=== PATIENT | male | born 1960 | race Caucasian/White ===

== ENCOUNTER → 2017-03-02 | Outpatient (CLI) | payer BC ==
--- NOTE | 2017-03-02 12:36 | KCIC ---
MR of the left midfoot HISTORY: Lateral midfoot pain for about 2 months. FINDINGS: Generalized mild primary osteoarthritis with osteophytes. Slightly more advanced primary osteoporosis at the calcaneal cuboid joint. Areas of degenerative subchondral marrow edema. Lisfranc ligament complex is intact. Tarsometatarsal alignment is preserved. Mild peroneus longus thickening with subtle increased signal compatible with mild tendinosis. Mild fluid signal surrounds the peroneal tendons. Limited visualization of the peroneus brevis tendon at the ankle demonstrates a longitudinal split tear, and tendinosis.. Moderate thickening of the plantar aponeurosis at the calcaneal attachment of the central band, with mildly increased signal and subjacent enthesophyte. Mild adjacent soft tissue edema. Subtalar joints are patent. Mild signal alteration of the tarsal sinus compatible with scarring or synovitis. Mild subchondral edema in T1 signal loss at the medial talar dome, likely due to degenerative etiology or prior old transchondral trauma. No evidence of acute fracture or unstable osteochondral lesion. No significant joint effusion. Mild soft tissue edema around the hindfoot. IMPRESSION: 1. Moderate plantar fasciitis. 2. Peroneus longus tendinosis in the foot. 3. Longitudinal split tear of the peroneus brevis tendon at and just distal to the lateral malleolus. 4. Primary osteoarthritis. 5. Scarring/synovitis in the tarsal sinus, a finding which can be seen with biomechanical stress and could correlate with symptoms of tarsal sinus syndrome. Electronically signed by: John Palacios MD (03/02/2017 12:32 PM)
== END | disposition home or self-care (01) ==
LOC: KCIC MRI 07:46
PROVIDERS: ATTEND Family Medicine
DX: M19.072 Primary osteoarthritis, left ankle and foot (principal)
CPT/HCPCS: 73718

== ENCOUNTER → 2017-06-01 | Outpatient (CLI) | payer BC ==
--- NOTE | 2017-06-01 12:13 | KCIC ---
MRI Lumbar Spine without contrast History: Lumbar radiculopathy, previous surgery, low back pain, bilateral lower extremity pain and numbness and tingling with walking Technique: Multiplanar, multi sequential noncontrast MR imaging was performed of the lumbar spine. Contrast: None Comparison: None available at this time Findings: There is more advanced degenerative disc disease L3-4, moderate to severe degenerative disease disc disease L2-3, L1-2, L4-5. Conus terminates normally at L1. L3-4 endplate edema eccentric to the left is more likely to be reactive/degenerative in etiology. Vertebral body stature is overall preserved. AP alignment is adequate. There is somewhat diffuse narrowing of the lumbar spinal canal and neural foramina on a developmental basis. T11-12: There is shallow protrusion in the right lateral recess, minimal right lateral recess stenosis. There is mild buckling of the ligamentum flavum. There is minimal posterior narrowing of the right neural foramen by facet, left neural foramen adequate. T12-L1: There is mild buckling of the ligamentum flavum flavum and facet hypertrophic change. Spinal canal and neural foramina are adequate. L1-L2: There is broad posterior bulge/protrusion. There is mild buckling of the ligamentum flavum. There is sddf-oz-[id number] narrowing of the far lateral recesses bilaterally. Neural foramina are adequate. L2-L3: There is disc osteophyte complex and superimposed broad posterior protrusion. There is mild buckling of the ligamentum flavum and mild facet hypertrophic change. There is moderate narrowing of the far lateral recesses greater on the left, tkwq-am-wheickqi narrowing of the central canal. There is minimal narrowing of the inferior left neural foramen, right neural foramen not significantly narrowed. L3-L4: There is a broad posterior protrusion. There are 2 adjacent synovial cyst in the left lateral recess more posteriorly, largest 0.6 cm in the other on the order of 0.4 cm. There is severe spinal stenosis with effacement of subarachnoid space, lateral recess stenosis bilaterally greater on the left. There is mild narrowing of the right neural foramen. Protrusion/extrusion extending above the intervertebral disc space in the left neural foramen and left extraforaminal region results in severe narrowing of the left neural foramen with impingement of the exiting left L3 nerve root including in the extraforaminal region. Extrusion is estimated at approximately 0.8 cm CC by 0.9 cm AP by at least 1.6 cm transverse. L4-L5: There is mild facet hypertrophic change and buckling of the ligamentum flavum. There is a shallow posterior bulge/protrusion. There is moderate to severe lateral recess stenosis bilaterally, mild to moderate narrowing of the central canal. There is yfzp-ak-hrgiguss right and mild left neural foramina compromise. L5-S1: Spinal canal is adequate. Neural foramina are overall adequate. Minimal disc osteophyte complex is near the ventral undersurface exiting left L5 nerve root in the proximal extraforaminal region without displacement. Impression: 1. There is severe spinal stenosis at L3-4, lateral recess stenosis greater on the left due to synovial cysts. There is other variable lateral recess stenosis as described such as bilaterally at L4-5 and L2-3 and to lesser degree at L1-2. 2. There is severe narrowing of the left L3-4 neural foramen by protrusion/extrusion with impingement of the exiting left L3 nerve root in the neural foramen and extraforaminal region. There is other lesser degree of neural foramina compromise as described. 3. There is multilevel moderate to severe degenerative disc disease other than sparing L5-S1. There is multilevel mild spondylosis. Electronically signed by: Jairo Brown MD (06/01/2017 12:10 PM) [facility]-KC[facility]
== END | disposition home or self-care (01) ==
LOC: KCIC MRI 10:36
PROVIDERS: ATTEND Nurse Practitioner Family
DX: M48.06 Spinal stenosis, lumbar region (principal); M51.17 Intervertebral disc disorders with radiculopathy, lumbosacral region
CPT/HCPCS: 72148

== ENCOUNTER → 2017-07-30 | Outpatient (CLI) | payer BC ==
[~2017-07-30] MED LIST: AMLO10TA2 PO; ASCO10002 PO; ASPI-482 PO; CHOL10003 PO; CYAN250012 PO; DOCU-109 PO; HYDR-2762 PO; HYDR50TA6 PO; IBUP-1060 PO; MELO15TA23 PO; MULT1TAB52 PO; OMEP40CA5 PO; TRAM50TA PO
[2017-07-30 15:38] LABS: BASO # 0.1 x10^3/uL (0.0-0.2); BASO % 1 % (0-3); EOS % 3 % (0-3); HEMOGLOBIN 15.8 g/dL (13.0-17.5); LYMPH # 2.4 x10^3/uL (1.0-4.8); LYMPH % 22 % (24-48); MEAN CORPUSCULAR HEMOGLOBIN 29 pg (25-35); MEAN CORPUSCULAR HGB CONC 34 g/dL (31-37); MEAN CORPUSCULAR VOLUME 86 fL (79-100); MONO % 11 % (0-9); NEUT % 64 % (31-73); PLATELET COUNT 286 x10^3/uL (140-400); RED BLOOD COUNT 5.46 x10^6/uL (4.30-5.70); RED CELL DISTRIBUTION WIDTH 14.7 % (11.5-14.5); WHITE BLOOD COUNT 10.8 x10^3/uL (4.0-11.0)
[2017-07-30 16:19] LABS: ALBUMIN 3.8 g/dL (3.4-5.0); ALBUMIN/GLOBULIN RATIO 1.1 (1.0-1.7); CALCIUM 9.5 mg/dL (8.5-10.1); CREATININE 0.8 mg/dL (0.7-1.3); POTASSIUM 4.1 mmol/L (3.5-5.1); TOTAL BILIRUBIN 0.5 mg/dL (0.2-1.0); TOTAL PROTEIN 7.4 g/dL (6.4-8.2)
== END | disposition home or self-care (01) ==
LOC: SURGPAT 12:53
PROVIDERS: ATTEND Neurological Surgery
DX: Z01.818 Encounter for other preprocedural examination (principal); M48.061 Spinal stenosis, lumbar region without neurogenic claudication; M71.38 Other bursal cyst, other site
CPT/HCPCS: 36415; 80053; 85025; 87641

== ENCOUNTER 2017-08-08 10:16 | Observation (INO) | payer BC ==
[2017-08-08] VITALS (8 sets, daily range): BP systolic 128–149; BP diastolic 67–81
[~2017-08-08] VITALS: Ht 175.3 cm; Wt 130.2 kg
[~2017-08-08 10:16] MED LIST changes: +BACITRACIN 50,000 UNIT in IV NORMAL SALINE 1000ML BAG 1,000 ML IRR ONE; -DOCU-109 PO; -HYDR-2762 PO; +HYDROmorphone 2 MG/ML VIAL IV PRN; +LIDOCAINE 1% PF 2 ML VIAL. ID PRN; +MORPHINE SULFATE 4 MG/ML DISP.SYRIN. IV PRN; +ONDANSETRON PF 4 MG/2 ML VIAL. IV PRN; +PROCHLORPERAZINE 10 MG/2 ML VIAL. IV PRN; +fentaNYL PF VIAL 100 MCG/2 ML VIAL IV PRN
--- NOTE | 2017-08-08 10:48 | HP ---
ADMIT DATE: Win Bingham dictating for Dr. Deepak Shepherd. TYPE OF REPORT: Preop H and P. DATE OF SURGERY: 08/08/2017. HISTORY OF PRESENT ILLNESS: The patient is a pleasant 57-year-old man who presents with difficulty with bilateral low back pain, especially prominent on the left side along with numb and painful sensation, which can radiate into his legs, especially on the left. He states he feels unsteadiness because of feelings of leg weakness and feelings on occasion that his legs might give out. The problem began a few months ago. It began spontaneously. Currently, he rates his pain as a 5/10, but it can become a 10/10 at its worse. 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 Walking seems to aggravate the problem. Sitting and stretching help him. He takes tramadol and Tylenol. PAST MEDICAL HISTORY: Arthritis, headaches, head/neck injury, hypertension, kidney stones and ulcers. PAST SURGICAL HISTORY: Back surgery in 2012, right knee replacement in 2013 and left knee replacement in 2014. FAMILY HISTORY: Diabetes, heart problems/disease, hypertension and heart attack at an early age. SOCIAL HISTORY: Employed at the [employer] in [place] [employer]. . Exercises daily. Denies substance abuse. Denies tobacco use. ALLERGIES: No known drug allergies. CURRENT MEDICATIONS: Omeprazole, amlodipine, hydrochlorothiazide, meloxicam, furosemide, tramadol, Tylenol, D3 Adult, Jason Aspirin, vitamin C, B12, Actos, potassium and Men's One Daily. REVIEW OF SYSTEMS: A 12-point review of systems was obtained and is noncontributory except for that mentioned above. NEUROSURGERY EXAMINATION: GENERAL APPEARANCE: Alert and pleasant, in no acute distress. HEENT: Normocephalic and atraumatic. SKIN: Warm and dry. MUSCULOSKELETAL: Lumbar paraspinal muscle bulk is normal, restricted range of motion of the lumbar spine, wbtw-wt-sqwawvzw tenderness of lower lumbar spine with palpation, normal range of motion of the lower extremities bilaterally. EXTREMITIES: No clubbing, cyanosis or edema. NEUROLOGICAL: Alert and oriented x 3, normal recent and remote memory, strength 5/5 in bilateral lower extremities, sensory was intact to light touch in the lower extremities bilaterally, reflexes were present and symmetric in bilateral lower extremities, he had a positive straight leg raising on the left with back and left posterior thigh pain relieved by Lasegue's maneuver. Straight leg raising is negative on the right side. Gait was normal. IMAGING: Reviewed. I reviewed a lumbar MRI scan. On that study, there are 2 problems. The first is severe spinal stenosis at L3-L4 related to synovial cyst. Additionally, at this level for lateral foraminal region is a large foraminal disk protrusion which markedly narrows the foramina and compresses the left L3 nerve root. ASSESSMENT: 1. S1 spinal stenosis, lumbar region with neurogenic claudication. 2. Other bursal cyst, unspecified site. 3. Intervertebral disk disorders with radiculopathy, lumbar region. PLAN: The patient has 2 problems. He has a synovial cyst with severe stenosis and the second problem is a far lateral foraminal disk herniation on the left L3-L4. My recommendation is that he undergo surgery to both remove the synovial cyst as well as the foraminal disk herniation. I spoke about the surgery and the risks. I spoke about the technique of the surgery. I spoke about the associated problems with foraminal disk herniations. I outlined the possibility that he may not improve. I spoke about the possibility of chronic back pain related to this kind of surgery. I spoke about the need for future surgery with an instrumented lumbar fusion. I spoke about the risks of this surgery and the expected postoperative course. He understands. At this point, he would like to proceed. We will make the arrangements. DEEPAK SHEPHERD MD DR: CAMERON/valeriy JOB#: [id number] / [id number]
[2017-08-08] MEDS: IV RINGERS,LACTATED 1000ML 1,000 ML IV SCH ×2 (10:50→15:55)
[2017-08-08] MEDS ORDERED: PROPOFOL 50 ML IV ONE ×2 (10:56→13:26)
[2017-08-08] MEDS ORDERED: DEXAMETHASONE SOD PHOS 20 MG/5 ML VIAL. ONE (10:56)
[2017-08-08] MEDS ORDERED: PROPOFOL 20 ML IV ONE (10:56)
[2017-08-08] MEDS ORDERED: ONDANSETRON PF 4 MG/2 ML VIAL. ONE (10:56)
[2017-08-08] MEDS ORDERED: PHENYLEPHRINE 10 MG/ML VIAL. ONE (10:56)
[2017-08-08] MEDS ORDERED: LIDOCAINE 2% PF Vial for OR 5 ML VIAL. ONE (10:56)
[2017-08-08] MEDS ORDERED: ROCURONIUM 50 MG/5 ML VIAL. ONE (10:57)
[2017-08-08] MEDS ORDERED: MIDAZOLAM HCL/PF 2 MG/2 ML VIAL. ONE (10:57)
[2017-08-08] MEDS ORDERED: REMIFENTANIL 2 MG VIAL. IV ONE (10:57)
[2017-08-08] MEDS ORDERED: GELATIN SPONGE SIZE 100. ONE (11:31)
[2017-08-08] MEDS ORDERED: BUPIVAC MPF-EPI 0.5%-1:200000 30 ML VIAL. ONE (11:31)
[2017-08-08] MEDS ORDERED: KETOROLAC 60 MG/2 ML INJ FOR OR. ONE (11:32)
[2017-08-08] MEDS ORDERED: THROMBIN TOPICAL 20,000 UNIT SPRAY.SYRN KIT TP ONE (11:32)
[2017-08-08] MEDS ORDERED: GLYCOPYRROLATE 1 MG/5 ML VIAL. ONE (12:52)
[2017-08-08] MEDS ORDERED: DESFLURANE > 120 MINUTES IH ONE (13:26)
[2017-08-08] MEDS ORDERED: NEOSTIGMINE METHYLSULFATE 5 MG/5 ML SYRINGE. ONE (14:34)
[2017-08-08] MEDS: POTASSIUM CL 20MEQ D5-0.45NACL 1,000 ML IV SCH (14:57)
[2017-08-08] MEDS ORDERED: MAGNESIUM HYDROXIDE 2,400 MG/30 ML ORAL.SUSP. PO PRN (15:00)
[2017-08-08] MEDS ORDERED: ONDANSETRON PF 4 MG/2 ML VIAL. IV PRN (15:00)
[2017-08-08] MEDS ORDERED: diphenhydrAMINE 50 MG/ML VIAL IV PRN (15:00)
[2017-08-08] MEDS ORDERED: CALCIUM CARBONATE 500 MG TAB.CHEW PO PRN (15:00)
[2017-08-08] MEDS ORDERED: 0.9 % SODIUM CHLORIDE 10 ML DISP.SYRIN. IV PRN (15:00)
[2017-08-08] MEDS ORDERED: ZOLPIDEM 5 MG TABLET. PO PRN (15:00)
[2017-08-08] MEDS ORDERED: diphenhydrAMINE HCL 25 MG CAPSULE PO PRN (15:00)
[2017-08-08] MEDS ORDERED: fentaNYL PF VIAL 100 MCG/2 ML VIAL IV PRN ×2 (15:00)
[2017-08-08] MEDS ORDERED: ACETAMINOPHEN 325 MG TABLET. PO PRN (15:00)
[2017-08-08] MEDS ORDERED: HYDROcodone/APAP 7.5/325MG 1 TAB TABLET PO PRN ×2 (15:00)
[2017-08-08] MEDS ORDERED: MAG HYDROX/ALUMINUM HYD/SIMETH 30 ML ORAL.SUSP PO PRN (15:00)
[2017-08-08] MEDS: fentaNYL PF VIAL 100 MCG/2 ML VIAL IV PRN ×2 (15:24→15:47)
[2017-08-08] MEDS: traMADol 50 MG TABLET PO SCH ×2 (16:00→20:34)
[2017-08-08] MEDS: amLODIPine BESYLATE 10 MG TABLET PO SCH (16:00)
[2017-08-08] MEDS: hydroCHLOROthiazide 25 MG TABLET PO SCH (16:00)
[2017-08-08] MEDS: ASPIRIN ENTERIC COATED 81 MG TABLET.DR. PO SCH (16:00)
[2017-08-08] MEDS: PANTOPRAZOLE 40 MG TABLET.DR. PO SCH (16:30)
--- NOTE | 2017-08-08 16:32 | OP ---
DATE OF SURGERY: 08/08/2017 PREOPERATIVE DIAGNOSES: 1. A far lateral/foraminal herniated disc, L3-L4, left, with severe left lumbar radiculopathy. 2. Synovial cyst, L3-L4, left, with severe lumbar spinal stenosis. POSTOPERATIVE DIAGNOSES: 1. A far lateral/foraminal herniated disc, L3-L4, left, with severe left lumbar radiculopathy. 2. Synovial cyst, L3-L4, left, with severe lumbar spinal stenosis. OPERATION PERFORMED: 1. Lumbar hemilaminotomy, L3-L4, left, with removal of synovial cyst and decompression of dura and nerve root. 2. Transfacet exposure, left, L3-L4, with lumbar microdiscectomy, left L3-L4. 3. Removal of the far lateral/foraminal disc herniation. Operation was done with EMG monitoring, fluoroscopy, microscopic dissection. SURGEON: Deepak Shepherd M.D. GROUT PUMP OPERATOR: MARIE Vasquez, assisted with the surgery. She assisted with the exposure, the microdiscectomy and removal of synovial cyst as well as closure. OPERATIVE INDICATIONS: The patient is a pleasant 57-year-old man who developed intractable back and bilateral leg pain, left greater than right, and was found to have the 2 distinct problems on his lumbar imaging studies. I recommended lumbar surgery to deal with both of these issues at L3-L4. I discussed the surgery, the risks, technique and expected postoperative course and he wished to go ahead. DESCRIPTION OF PROCEDURE: Following general endotracheal anesthesia, the patient was positioned prone on the Jose Maria table. His lumbar region was prepped and draped in standard fashion. [place] hose and AV impulse boots were applied for DVT prophylaxis. A microscope was draped. Fluoroscopy was draped and brought into field. Monitoring was established. Ancef 2 grams were given less than 1 hour prior to initiation of surgery. Using fluoroscopic guidance, an incision was made extending from upper L3 to inferior L4, dissected down to the skin and subcutaneous tissue and reflected the paraspinal muscles laterally and created exposure of the spinous process, lamina and facet at L3-L4 on the left. I brought in the microscope and the remainder of surgery done with the microscope using microscopic technique. I tilted the patient far away from tn and I drilled close to the midline and then worked laterally down to ligamentum flavum and then laterally working inferiorly performing a generous partial foraminotomy and then superiorly until I had drilled above the ligamentum. I then began to peel the ligamentum down from superiorly to inferiorly and as I worked I visualized, sucked away and removed the synovial cyst which was markedly compressing the dura. This was peeled back and I carried my dissection inferiorly below the disc space to ensure that I had it completely removed. I then began to work laterally drilling through the facet after visualizing the L3 root and I followed this quite far laterally. There was a very large lateral foraminal disc herniation and I incised the annulus and began to remove a number of fragments followed by using the micropituitary and Dallin pituitary and performing a very generous discectomy decompressing the entire region. As I worked with the root, which was under considerable pressure and lifted posterolaterally, came back to much more normal position. Following the generous discectomy, I irrigated copiously with antibiotic solution. I did use bone wax throughout the operation for hemostasis as well as a bipolar cautery where necessary. I did place a small piece of Gelfoam adjacent to the root to stop any venous bleeding and again irrigated copiously, removed the retractor, obtained hemostasis in the muscle and I closed the wound in layers with absorbable suture and the skin was closed with 4-0 subcuticular stitch. The operation went very well. There were no difficulties with the monitoring. I was quite pleased with the surgery. DEEPAK SHEPHERD MD DR: CAMERON/valeriy JOB#: [id number] / [id number] ELMA
[2017-08-08] MEDS: METHOCARBAMOL 750 MG TABLET PO SCH (20:34)
[2017-08-08] MEDS: DOCUSATE SODIUM 100 MG CAPSULE. PO SCH (20:34)
[2017-08-09] MEDS: POTASSIUM CL 20MEQ D5-0.45NACL 1,000 ML IV SCH (04:17)
[2017-08-09 05:00] VITALS: BP 115/70
[2017-08-09] MEDS: PANTOPRAZOLE 40 MG TABLET.DR. PO SCH (08:43)
[2017-08-09] MEDS: hydroCHLOROthiazide 25 MG TABLET PO SCH (08:46)
[2017-08-09] MEDS: ASPIRIN ENTERIC COATED 81 MG TABLET.DR. PO SCH (08:46)
[2017-08-09] MEDS: amLODIPine BESYLATE 10 MG TABLET PO SCH (08:46)
[2017-08-09] MEDS: traMADol 50 MG TABLET PO SCH (08:47)
[2017-08-09] MEDS: METHOCARBAMOL 750 MG TABLET PO SCH (08:47)
[2017-08-09] MEDS: DOCUSATE SODIUM 100 MG CAPSULE. PO SCH (08:53)
[2017-08-09] MEDS ORDERED: CYANOCOBALAMIN (VITAMIN B-12) 1,000 MCG TABLET. PO SCH (09:00)
[2017-08-09] MEDS ORDERED: MELOXICAM 7.5 MG TABLET PO SCH (09:00)
[2017-08-09] MEDS ORDERED: ASCORBIC ACID 500 MG TABLET PO SCH (09:00)
[2017-08-09] MEDS ORDERED: MULTIVITAMIN with MINERAL TABLET. PO SCH (09:00)
[2017-08-09] MEDS ORDERED: CHOLECALCIFEROL (VITAMIN D3) 1,000 UNIT TABLET PO SCH (09:00)
--- NOTE | 2017-08-09 09:32 | DISCH ---
DISCHARGE INSTRUCTIONS Condition on Discharge Condition on Discharge: Stable Activity After Discharge Activity Instructions for Disc: Activity as tolerated, Avoid exertion Other activity instructions: no driving for a week Bathing Instructions: Shower-keep dressing dry Lifting Instructions after Dis: No heavy lifting, No pulling or pushing, Do not lift >10 pounds Diet after Discharge Additional Diet Restrictions: resume home diet Wound Incision Care Wound/Incision Care: Ice to area for comfort Other wound/incision instructi: may remove dressing in 48 hrs if dry then may shower- no soaking Contacting the after DC Call your doctor for: Concerns you may have Follow-Up Follow up with: Dr. Orlando's nurse in 2 weeks [phone] SPENSER SHEPHERD MD Aug 09, 2017 09:32
[2017-08-09] MEDS ORDERED: DOCU-109 PO (09:33)
[2017-08-09] MEDS ORDERED: HYDR-2762 PO (09:33)
[2017-08-09 10:22] VITALS: BP 169/80
--- NOTE | 2017-08-10 18:17 | PATHOLOGY ---
PATHOLOGY REPORT * * * * * * * * FINAL DIAGNOSIS: Segments of fibrocartilaginous, fibroadipose, and skeletal muscle tissue and bone, lumbar disc and decompression with synovial cyst: - Degenerative changes of fibrocartilaginous tissue. COMMENT: There is no evidence of an acute inflammatory process or malignancy. (JPM:mml; 08/10/2017) REPORT ELECTRONICALLY SIGNED BY: Edis Marie M.D. DATE/TIME: 08/10/2017 18:16 * * * * * * * * GROSS PATHOLOGY: Received in formalin labeled "Rebekah Aguero, lumbar disc and decompression with synovial cyst" is a 5.8 x 4.6 x 0.6 cm aggregate of chatterjee-white soft tissue fragments and scant chatterjee-white bony fragments. A cystic structure is not grossly identified. Alteration Inspector sections of the specimen are submitted in cassette A1. ([facility] [place]; 08/09/2017) INITIAL CPT CODE(S): A; 87885 Professional services performed by [facility] [place] [address] Technical services performed by [facility] at [address] [place] [address]. SPECIMEN(S) RECEIVED: A.Lumbar disc and decompression with synovial cyst CLINICAL HISTORY: Far lateral foraminal disk herniation on left of L3-L4, synovial cyst with severe stenosis PATIENT: REBEKAH AGUERO /AGE: 502/13/1960 (Age: 57) PATIENT #: [id number] ALT CASE #: SPECIMEN COLLECTION DATE: 08/08/2017 SPECIMEN RECEIVED DATE: 08/09/2017 [facility] - [address] [place] [address] - PHONE: [phone] * * * END OF REPORT * * *
== END 2017-08-09 10:40 | disposition home or self-care (01) ==
LOC: SURG 10:16 → 4 SOUTHEST 16:00
PROVIDERS: ADMIT Neurological Surgery; ATTEND Neurological Surgery
DX: M48.062 Spinal stenosis, lumbar region with neurogenic claudication (principal); M71.38 Other bursal cyst, other site; M54.16 Radiculopathy, lumbar region; M51.16 Intervertebral disc disorders with radiculopathy, lumbar region; M19.90 Unspecified osteoarthritis, unspecified site; I10 Essential (primary) hypertension; Z83.3 Family history of diabetes mellitus; Z82.49 Family history of ischemic heart disease and other diseases of the circulatory system
CPT/HCPCS: 63030; 76000; 88304; 97162; 97530; G0378; G0379; G8978; G8979; G8980; J0690; J1100; J1885; J2250; J2405; J2704; J2710; J3010; J3490; J7030; J7120; 86701; J2001